=== PATIENT | female | born 1960 | race Caucasian/White ===

== ENCOUNTER 2018-08-27 22:17 | Emergency (ER) | payer BC ==
[2018-08-27] MEDS ORDERED: HYDROmorphone 1 MG/ML Syringe IVPUSH ONE (22:53)
[2018-08-27] MEDS ORDERED: Ondansetron 4 MG/2 ML SDV IVPUSH ONE (22:53)
[2018-08-27] MEDS ORDERED: Sodium Chloride 0.9% 1,000 ML IV SCH (23:00)
--- NOTE | 2018-08-27 23:00 | EDM.PDOC ---
ED HPI GENERAL MEDICAL PROBLEM - General Chief Complaint: Flank Pain Stated Complaint: COUGH CONGESTION SIDE PAIN Time Seen by Provider: 08/27/18 22:37 Source of Information: Reports: Patient, Family (), RN Notes Reviewed History Limitations: Reports: No Limitations - History of Present Illness INITIAL COMMENTS - FREE TEXT/NARRATIVE: The patient states that she woke up just before 22:00 this evening with severe right flank pain. She is unable to describe its character. The pain is made worse with any movement, including breathing, but is also present even if she remains perfectly still. She states that she is short of breath, but it is unclear if the shortness of breath is due to pain with breathing. No prior similar symptoms. The patient states that she developed symptoms of fever, nausea, vomiting, and a slight cough on 08/22/2018. She has been taking Emely-Winston, and states that her symptoms have largely resolved. She denies having any chest pain , palpitations, fever, nausea, vomiting, constipation, diarrhea, urinary symptoms, or gross dysuria tonight. The patient states that she has not taken any [id number] or home remedies to treat her symptoms tonight. The patient's PCP is Dr. Marianela Rosas. Right Lower Back Pain Score (Numeric/FACES): 8 - Related Data Allergies Allergy/AdvReac Type Severity Reaction Status Date / Time No Known Allergies Allergy Verified 08/27/18 22:26 Home Meds: Home Meds Levothyroxine 1 tab PO DAILY 08/27/18 [History] Doxycycline [Vibramycin] 1 cap PO Q12H #14 cap 08/28/18 [Rx] Past Medical History Endocrine/Metabolic History: Reports: Hypothyroidism - Past Surgical History Female Surgical History: Reports: Tubal Ligation Musculoskeletal Surgical History: Reports: Other (See Below) (Left knee repair) Social & Family History - Tobacco Use Smoking Status *Q: Current Every Day Smoker Years of Tobacco use: 38 Packs/Tins Daily: 0.5 - Caffeine Use Caffeine Use: Reports: Coffee - Alcohol Use Alcohol Use History: Yes Alcohol Use Frequency: Rarely - Recreational Drug Use Recreational Drug Use: No - Living Situation & Occupation Living situation: Reports: , with Spouse Occupation: Unemployed ED ROS GENERAL - Review of Systems Review Of Systems: ROS reveals no pertinent complaints other than HPI. ED EXAM, GENERAL - Physical Exam Exam: See Below Exam Limited By: No Limitations General Appearance: Alert, Mild Distress (Appears uncomfortable. Prefers to stand by the side of the gurney.), Thin Eye Exam: Bilateral Eye: EOMI, Normal Inspection Ears: Normal External Exam, Hearing Grossly Normal Nose: Normal Inspection Throat/Mouth: Normal Inspection, Normal Lips, Normal Voice, No Airway Compromise Head: Atraumatic, Normocephalic Neck: Normal Inspection, Full Range of Motion Respiratory/Chest: No Respiratory Distress, Lungs Clear, Normal Breath Sounds, No Accessory Muscle Use, Decreased Breath Sounds (right base, compared to the left base), Other (No hyperresonance to percussion of the posterior lung teresa) . No: Crackles, Rhonchi, Wheezing, Pleural Rub, Prolonged Expiration Cardiovascular: Normal Peripheral Pulses, Regular Rate, Rhythm, No Edema, No Gallop, No JVD, No Murmur, No Rub Peripheral Pulses: 4+: Radial (L), Radial (R) GI/Abdominal: Normal Bowel Sounds, Soft, Non-Tender, No Organomegaly, No Distention, No Abnormal Bruit, No Mass (Female) Exam: Deferred Rectal (Female) Exam: Deferred Back Exam: CVA Tenderness (R) (The patient is unable to distinguish if she has tenderness to palpation of the right flank, versus pain without tenderness). No : CVA Tenderness (L) Extremities: Normal Inspection, Normal Range of Motion, No Pedal Edema, Normal Capillary Refill Neurological: Alert, Oriented, Normal Cognition, No Motor/Sensory Deficits Psychiatric: Normal Affect Skin Exam: Warm, Dry, Intact, Normal Color, No Rash Course - Vital Signs Last Recorded V/S: Last Vital Signs Temp 35.5 C 08/27/18 22:25 Pulse 76 08/27/18 22:25 Resp 18 08/27/18 22:25 BP 97/78 08/27/18 22:25 Pulse Ox 95 08/27/18 22:25 - Orders/Labs/Meds Orders: Active Orders 24 hr Category Date Time Status Ang Chest [CT] Stat Exams 08/28/18 02:20 Taken Chest 1V Frontal [CR] Stat Exams 08/27/18 22:52 Taken Chest 2V [CR] Stat Exams 08/27/18 23:11 Taken CULTURE BLOOD [BC] Stat Lab 08/27/18 23:12 Ordered CULTURE BLOOD [BC] Stat Lab 08/27/18 23:12 Ordered Sodium Chloride 0.9% [Normal Saline] 1,000 ml Med 08/27/18 23:00 Active IV ASDIRECTED Blood Culture x2 Reflex Set [OM.PC] Stat Oth 08/27/18 23:12 Ordered Medication Orders Sodium Chloride (Normal Saline) 1,000 mls @ 150 mls/hr IV ASDIRECTED JASMIN Last Admin: 08/27/18 23:08 Dose: 150 mls/hr Labs: Laboratory Tests 08/27/18 08/27/18 08/27/18 Range/Units 23:30 23:30 23:30 WBC 13.23 H (3.98-10.04) K/mm3 RBC 4.32 (3.98-5.22) M/mm3 Hgb 12.6 (11.2-15.7) gm/L Hct 38.5 (34.1-44.9) % MCV 89.1 (79.4-94.8) fl MCH 29.2 (25.6-32.2) pg MCHC 32.7 (32.2-35.5) g/dl RDW Std Deviation 40.0 (36.4-46.3) fL Plt Count 556 H (182-369) K/mm3 MPV 8.1 L (9.4-12.3) fl Neutrophils % (Manual) 77 H (40-60) % Band Neutrophils % 0 (0-10) % Lymphocytes % (Manual) 22 (20-40) % Atypical Lymphs % 0 % Immat Monocytes % (Man) 0 Monocytes % (Manual) 1 L (2-10) % Eosinophils % (Manual) 0 L (0.7-5.8) % Basophils % (Manual) 0 L (0.1-1.2) Metamyelocytes % 0 Myelocytes % 0 Promyelocytes % 0 Blast Cells % 0 Plasma Cell % (Manual) 0 Nucleated RBCs 0.0 % Platelet Estimate Increased RBC Morph Comment Normal PT 12.4 H (9.5-12.1) SECONDS INR 1.14 APTT 28 (24-31) SECONDS D-Dimer, Quantitative 0.84 H (0.19-0.50) mg/L Sodium 136 (136-145) mEq/L Potassium 3.7 (3.5-5.1) mEq/L Chloride 100 (98-107) mEq/L Carbon Dioxide 29 (21-32) mEq/L Anion Gap 10.7 (5-15) BUN 12 (7-18) mg/dL Creatinine 1.2 H (0.55-1.02) mg/dL Est Cr Clr Drug Dosing 44.13 mL/min Estimated GFR (MDRD) 46 (>60) mL/min BUN/Creatinine Ratio 10.0 L (14-18) Glucose 124 H (74-106) mg/dL Calcium 9.2 (8.5-10.1) mg/dL Total Bilirubin 0.2 (0.2-1.0) mg/dL AST 14 L (15-37) U/L ALT 16 (14-59) U/L Alkaline Phosphatase 106 (46-116) U/L Total Protein 8.2 (6.4-8.2) g/dl Albumin 3.2 L (3.4-5.0) g/dl Globulin 5.0 gm/dL Albumin/Globulin Ratio 0.6 L (1-2) Urine Color (Yellow) Urine Appearance (Clear) Urine pH (5.0-8.0) Ur Specific [place] (1.005-1.030) Urine Protein (Negative) Urine Glucose (UA) (Negative) Urine Ketones (Negative) Urine Occult Blood (Negative) Urine Nitrite (Negative) Urine Bilirubin (Negative) Urine Urobilinogen (0.2-1.0) Ur Leukocyte Esterase (Negative) Urine RBC (0-5) /hpf Urine WBC (0-5) /hpf Ur Squamous Epith Cells (0-5) /hpf Urine Bacteria (FEW) /hpf Urine Mucus (FEW) /hpf 08/28/18 Range/Units 01:20 WBC (3.98-10.04) K/mm3 RBC (3.98-5.22) M/mm3 Hgb (11.2-15.7) gm/L Hct (34.1-44.9) % MCV (79.4-94.8) fl MCH (25.6-32.2) pg MCHC (32.2-35.5) g/dl RDW Std Deviation (36.4-46.3) fL Plt Count (182-369) K/mm3 MPV (9.4-12.3) fl Neutrophils % (Manual) (40-60) % Band Neutrophils % (0-10) % Lymphocytes % (Manual) (20-40) % Atypical Lymphs % % Immat Monocytes % (Man) Monocytes % (Manual) (2-10) % Eosinophils % (Manual) (0.7-5.8) % Basophils % (Manual) (0.1-1.2) Metamyelocytes % Myelocytes % Promyelocytes % Blast Cells % Plasma Cell % (Manual) Nucleated RBCs % Platelet Estimate RBC Morph Comment PT (9.5-12.1) SECONDS INR APTT (24-31) SECONDS D-Dimer, Quantitative (0.19-0.50) mg/L Sodium (136-145) mEq/L Potassium (3.5-5.1) mEq/L Chloride (98-107) mEq/L Carbon Dioxide (21-32) mEq/L Anion Gap (5-15) BUN (7-18) mg/dL Creatinine (0.55-1.02) mg/dL Est Cr Clr Drug Dosing mL/min Estimated GFR (MDRD) (>60) mL/min BUN/Creatinine Ratio (14-18) Glucose (74-106) mg/dL Calcium (8.5-10.1) mg/dL Total Bilirubin (0.2-1.0) mg/dL AST (15-37) U/L ALT (14-59) U/L Alkaline Phosphatase (46-116) U/L Total Protein (6.4-8.2) g/dl Albumin (3.4-5.0) g/dl Globulin gm/dL Albumin/Globulin Ratio (1-2) Urine Color Yellow (Yellow) Urine Appearance Clear (Clear) Urine pH 5.5 (5.0-8.0) Ur Specific [place] > or = 1.030 (1.005-1.030) Urine Protein Trace H (Negative) Urine Glucose (UA) Negative (Negative) Urine Ketones Trace H (Negative) Urine Occult Blood Trace-lysed H (Negative) Urine Nitrite Negative (Negative) Urine Bilirubin Negative (Negative) Urine Urobilinogen 0.2 (0.2-1.0) Ur Leukocyte Esterase Negative (Negative) Urine RBC 0-5 (0-5) /hpf Urine WBC 0-5 (0-5) /hpf Ur Squamous Epith Cells 0-5 (0-5) /hpf Urine Bacteria Few H (FEW) /hpf Urine Mucus Not seen (FEW) /hpf Meds: Medications Generic Name Dose Route Start Last Admin Trade Name Freq PRN Reason Stop Dose Admin Sodium Chloride 1,000 mls @ 150 mls/hr 08/27/18 23:00 08/27/18 23:08 Normal Saline IV 150 mls/hr ASDIRECTED JASMIN Administration Discontinued Medications Generic Name Dose Route Start Last Admin Trade Name Freq PRN Reason Stop Dose Admin Azithromycin 500 mg 08/28/18 00:14 08/28/18 00:27 Zithromax PO 08/28/18 00:15 500 mg ONETIME STA Administration Hydromorphone HCl 1 mg 08/27/18 22:53 08/27/18 23:08 Dilaudid IVPUSH 08/27/18 22:54 1 mg ONETIME ONE Administration Ceftriaxone Sodium 1 gm/ 100 mls @ 200 mls/hr 08/28/18 00:14 08/28/18 00:28 Sodium Chloride IV 08/28/18 00:43 200 mls/hr ONETIME ONE Administration Ondansetron HCl 4 mg 08/27/18 22:53 08/27/18 23:07 Zofran IVPUSH 08/27/18 22:54 4 mg ONETIME ONE Administration - Re-Assessments/Exams Free Text/Narrative Re-Assessment/Exam: 08/27/18 22:55 The cause of the patient's right flank pain is not immediately clear. On auscultation, she has decreased breath sounds in that area, concerning for a pneumothorax, although I do not hear hyperresonance on percussion. I have ordered a portable chest x-ray to evaluate for a pneumothorax. A pulmonary embolus is also a distinct possibility, therefore I have ordered a D-dimer, along with other blood work. A ureterolith is, of course, a possibility, therefore I have ordered a urinalysis to look for hematuria. A CT scan may be necessary, but I'm hoping to narrow down whether it would be a CT scan of the chest versus abdomen and pelvis, and with, or without contrast. While waiting for these preliminary tests, the patient will receive IV fluid, Dilaudid, and Zofran. 08/27/18 23:12 Portable chest radiograph reviewed. The cardiac silhouette is within normal limits. No pulmonary vascular congestion. No pleural effusions seen on this AP view. There appears to be an infiltrate at the right base. No pneumothorax. Formal read per the Radiologist pending. Based on the portable chest radiograph findings, I have ordered a two-view chest x-ray and 2 sets of blood cultures. 08/28/18 00:05 2 view chest radiograph reviewed. The cardiac silhouette is within normal limits. No pulmonary vascular congestion. No pleural effusions. There is a small infiltrate in the posterior sulcus, not seen on the PA view, as the patient's inspiratory effort is not as great on the PA view (right hemidiaphragm to the 9th rib) as it was on the AP view (right hemidiaphragm to the 10th rib). No pneumothorax. Formal read per the radiologist pending. Notified that, despite several attempts, blood for blood cultures was unable to be obtained. I will proceed with starting the patient on empiric antibiotics. 08/28/18 02:21 There has been a delay in evaluation, as the patient did not provide a urine sample until a short time ago. Her urinalysis does not show a significant amount of blood, therefore a ureterolith is unlikely. The patient's D-dimer returned only mildly elevated, at 0.84, however, while her WBC count is mildly elevated at 13.23, there is 0% bandemia. I suspect that the patient is suffering from right lower lobe pneumonia, as reflected on the chest x-ray, however, I cannot exclude a pulmonary infarct due to a pulmonary embolus, and while I would expect the D-dimer to have been higher than 0.84 with a PE, I think it is worthwhile to obtain a CT angiogram to rule that process out. The patient has already been started on Rocephin and azithromycin. If her CT angiogram returns negative for a pulmonary embolus, I will continue treatment for pneumonia. 08/28/18 05:35 CT angiogram of the chest is read by [facility] as: 1. No evidence of pulmonary embolism. 2. Small area of consolidation in the dependent right lower lobe of the lung which may represent pneumonia. Follow-up per official interpretation. 3. Indeterminate pulmonary nodules versus small nodular foci of consolidation in the left lower lobe of the lung. Follow-up per official interpretation. 4. Very small right pleural effusion. The patient does not require hospitalization. Current guidelines recommend doxycycline 100 mg po BID for 5-7 days for the treatment of outpatient community -acquired pneumonia. I will prescribe a 7-day course, but recommend that the patient follow-up with her PCP in 24-48 hours, to ensure improvement in her symptoms. This is especially important, since we were unable to obtain blood cultures, therefore we will not be able to guide treatment based on culture results. For the patient's pleuritic pain, I will recommend [id number] ibuprofen. 08/28/18 05:45 The patient tells me that she already has an appointment to see Dr. Rosas at 13:00 this afternoon. I would still like her to follow-up on , 2018. Departure - Departure Time of Disposition: 05:46 Disposition: Home, Self-Care 01 Condition: Good Clinical Impression: Community acquired pneumonia, Pleuritic pain - Discharge Information *PRESCRIPTION DRUG MONITORING PROGRAM REVIEWED*: Not Applicable *COPY OF PRESCRIPTION DRUG MONITORING REPORT IN PATIENT PATTI: Not Applicable Referrals: Marianela Rosas MD [Primary Care Provider] - Forms: ED Department Discharge Additional Instructions: You were seen in the emergency room for lower right flank pain, made worse with deep breaths. Workup in the ER included blood work, a urinalysis, 2 chest x-ray, and a CT angiogram of your chest. Your workup found that you have pneumonia in your lower right lung. You were treated with the antibiotics Rocephin and azithromycin in the ER, however, going forward, a prescription for the antibiotic doxycycline has been sent to [facility], located in the [facility], across the street from the hospital. Take one tablet of doxycycline every 12 hours, starting this morning, 08/28/2018, as prescribed. Finish the entire prescription unless told otherwise by your doctor. Follow-up with your ECP, Dr. Marianela Rosas, at your previously scheduled appointment at 1:00 this afternoon, however, we would also like you to follow- up with her again on , 08/30/2018, to make sure that your symptoms are improving. This is especially important, since we were unable to obtain blood for blood cultures, therefore we will not be able to direct your care based on blood culture results. Your lower back pain is likely due to pleurisy. We recommend that you take over- the-counter ibuprofen, 2-3 tablets (400-600 mg) every 8 hours, with food, as needed for discomfort. If any other problems, please do not hesitate to return to the ER. - My Orders Last 24 Hours: My Active Orders 08/27/18 22:52 Chest 1V Frontal [CR] Stat 08/27/18 23:00 Sodium Chloride 0.9% [Normal Saline] 1,000 ml IV ASDIRECTED 08/27/18 23:11 Chest 2V [CR] Stat 08/27/18 23:12 CULTURE BLOOD [BC] Stat CULTURE BLOOD [BC] Stat Blood Culture x2 Reflex Set [OM.PC] Stat 08/28/18 02:20 Ang Chest [CT] Stat - Assessment/Plan Last 24 Hours: My Active Orders 08/27/18 22:52 Chest 1V Frontal [CR] Stat 08/27/18 23:00 Sodium Chloride 0.9% [Normal Saline] 1,000 ml IV ASDIRECTED 08/27/18 23:11 Chest 2V [CR] Stat 08/27/18 23:12 CULTURE BLOOD [BC] Stat CULTURE BLOOD [BC] Stat Blood Culture x2 Reflex Set [OM.PC] Stat 08/28/18 02:20 Ang Chest [CT] Stat
[2018-08-28] MEDS ORDERED: Azithromycin 250 MG Tab PO STA (00:14)
[2018-08-28] MEDS ORDERED: cefTRIAXone 1 GM in Sodium Chloride 0.9% 100 ML IV ONE (00:14)
--- NOTE | 2018-08-28 06:51 | CR ---
Chest: Frontal view of the chest was obtained. Comparison: No prior chest x-ray, subsequent chest x-ray and chest CT performed on same day. Slight parenchymal density is seen within the right lung base. Lungs otherwise are clear. Heart size and mediastinum are normal. Bony structures are unremarkable. Blunting of the right lateral costophrenic angle is seen compatible with pleural effusion. Impression: 1. Mild increased density within the right lung base with small right-sided pleural effusion. 2. No pneumothorax is seen. Diagnostic code #3
--- NOTE | 2018-08-28 07:21 | CR ---
Chest: Two views of chest were obtained. Comparison: Previous chest x-ray performed earlier on the same day, subsequent CT chest study. Mild increased density within the right base which is better seen on subsequent CT study. Slight blunting of the lateral right costophrenic angle is seen compatible with subsequently seen pleural effusion. Lungs otherwise are clear. Heart size and mediastinum are normal. Bony structures are unremarkable. Impression: 1. Slight findings within the right lung base as noted above, better seen on subsequent CT study. Diagnostic code #3
--- NOTE | 2018-08-28 07:21 | CT ---
CT chest Technique: Multiple axial sections through the chest were obtained. Intravenous contrast was utilized. Study has been performed as a pulmonary angiogram protocol. Findings: Pulmonary arteries are moderately well-opacified. No filling defects are seen to indicate pulmonary embolism. Mediastinum and hilar regions appear within normal limits. No axillary adenopathy is seen. Aorta shows no aneurysm. No pericardial thickening is seen. Upper abdominal structures are within normal limits. Small right sided pleural effusion is seen. Focal parenchymal density is noted within the right lung base. Subpleural nodular densities noted within the left base. Lungs otherwise are clear. Bone window settings were reviewed which show scattered degenerative change within the spine. No acute osseous abnormality is appreciated. Impression: 1. Small right sided pleural effusion with focal parenchymal density within the right lung base. Findings may represent small area of pneumonia. Two small subpleural parenchymal nodules with the left base possibly due to additional infectious foci. 2. No findings of pulmonary embolism. 3. Follow-up chest x-ray recommended in 3-4 months to confirm resolution of these findings. Follow up study can be performed without contrast. Diagnostic code #9 I agree with preliminary report from [facility], finalized on 08/28/18, 6:19 AM Central Time
== END 2018-08-28 06:04 | disposition home or self-care (01) ==
LOC: JD.ED 22:17
DX: J18.9 Pneumonia, unspecified organism (principal); R07.81 Pleurodynia; E03.9 Hypothyroidism, unspecified; F17.210 Nicotine dependence, cigarettes, uncomplicated; Z79.899 Other long term (current) drug therapy
CPT/HCPCS: 36415; 71045; 71046; 71275; 80053; 81001; 85007; 85027; 85379; 85610; 85730; 96361; 96365; 96375; 99284; A9270; J0696; J1170; J2405; J7030; J7040